=== PATIENT | male | born 1980 | race Caucasian/White ===

== ENCOUNTER 2022-09-12 08:48 | Outpatient (CLI) | payer BC, SELFPAY ==
--- NOTE | 2022-09-12 09:15 | MR_ITS ---
EXAM: MRI of the LEFT KNEE, without contrast CLINICAL: Male, 42 years old, with left knee pain. INDICATION: Evaluate for distal hamstring tear versus other knee derangement etiology. PRIOR SURGERY: None reported. PLAIN FILMS: 08/14/2022 radiographic series of the left knee. COMPARISONS: No prior MRIs available. TECHNICAL: Using a 1.5 Lauren MR scanner and a localizing surface coil: 3.0 mm?sagittals: PD, PDFS 3.0 mm?coronals: PD, STIR 3.0 mm?axials: PD, T2FS SEDATION: None. CONTRAST: None. IMPRESSION: 1. Tendinopathy and short segment longitudinal split of the proximal popliteus tendon and origin at the femur without disruption. 2. Large knee effusion and small popliteal cyst. 3. No medial or lateral meniscus tears. 4. No cruciate or collateral ligament injuries. 5. No chondral abnormalities. 6. No distal hamstring abnormalities. FINDINGS: Knee joint: Effusion: Large left knee effusion. Popliteal cyst: Small slender popliteal cyst. Loose bodies: None. Subcutaneous and extra-articular soft tissues: Unremarkable. Ligaments: ACL: Intact ACL anteromedial and posterolateral bundles, without sprain or tear. PCL: Intact PCL, without acute or chronic injury. MCL: Intact MCL superficial and deep layers, without injury. FCL: Intact FCL, without injury. Posterolateral corner: Abnormal tendinopathy and longitudinal split of the proximal popliteus tendon at and adjacent to its femoral attachment without complete disruption, potential to be associated with posterolateral symptoms (axial PD & PDFS series 3 & 4, images 13-17; coronal PD & STIR series 7 & 8, images 22-18). No other posterolateral corner soft tissue injury. Biceps femoris, iliotibial band, popliteofibular ligament and lateral gastrocnemius are intact. Posteromedial corner: No posteromedial corner soft tissue injury. Semimembranosus, pes anserine tendons and posterior oblique ligament are without injury, tendinopathy or bursitis. Extensor mechanism: Patellar tendon: Intact, without tendinopathy. Quadriceps tendon: Intact, without tendinopathy. Retinacula: Medial and lateral retinacula are intact. Fat pads: Unremarkable infrapatellar Hoffa's, quadriceps and prefemoral fat pads. Medial compartment: Medial meniscus: No articular surface, meniscosynovial junction or root tear. No displacement, extrusion or parameniscal cyst. Medial femoral condyle: No chondromalacia or osteochondral abnormality. Medial tibial plateau: No chondromalacia or osteochondral abnormality. Lateral compartment: Lateral meniscus: No articular surface, meniscosynovial junction or root tear. No displacement, extrusion or parameniscal cyst. Lateral femoral condyle: No chondromalacia or osteochondral abnormality. Lateral tibial plateau: No chondromalacia or osteochondral abnormality. Patellofemoral joint: Patella: No chondromalacia or osteochondral abnormality. Trochlea: No chondromalacia or osteochondral abnormality. Proximal tibiofibular joint: Unremarkable, without evidence of ligament sprain injury, joint effusion or adjacent marrow edema. Bones: No stress/occult fractures or other marrow edema/pathology. Neurovascular: Popliteal artery: No demonstrable popliteal artery entrapment or predisposing gastrocnemius variant. No aneurysm or pseudoaneurysm. Popliteal vein: No fusiform or saccular venous aneurysm. Anterior tibial artery: No aberrant high-origin anterior tibial artery. Tibial nerve: No entrapment or distal edema/swelling at the soleal sling. Popliteal nerve: No intrinsic or extrinsic mass or edema/swelling. Common peroneal nerve: Normal to fibular head and neck level included. [facility] Electronically signed on 09/14/2022 8:58:00 AM by Rik Gordillo M.D.
== END 2022-09-12 08:49 | disposition home or self-care (01) ==
LOC: MRI 08:50
PROVIDERS: PCP Emergency Medicine; Visit Provider Emergency Medicine
DX: M25.562 Pain in left knee (principal); M25.462 Effusion, left knee
CPT/HCPCS: 73721